=== PATIENT | male | born 1945 ===

== ENCOUNTER 2024-02-04 09:13 | Day surgery (SDC) | payer MEDICARE, OTHER ==
[~2024-02-04] VITALS: Ht 177.8 cm; Wt 113.9 kg
[~2024-02-04 09:13] MED LIST: LR 1,000 ML IV SCH
[2024-02-04] MEDS ORDERED: BENADRYL25 M2 PO (11:42)
[2024-02-04] MEDS ORDERED: GLUCOSAMINE SU500 M2 PO (11:43)
[2024-02-04 12:28] VITALS: BP 167/86; PULSE 74; TEMP 97.9
[2024-02-04] MEDS ORDERED: fentaNYL 50 MCG/ML 2 ML VIAL ONE (13:54)
[2024-02-04] MEDS ORDERED: Lidocaine PF 2% (20 MG/ML) 5 ML VIAL ONE (13:55)
[2024-02-04] MEDS ORDERED: HYDROmorphone 1 MG/1 ML SYRINGE [PACU/SDC ONLY] IV PRN (14:00)
[2024-02-04] MEDS ORDERED: hydrALAZINE 20 MG/ML 1 ML VIAL IV PRN (14:00)
[2024-02-04] MEDS ORDERED: Ondansetron 4 MG/2 ML VIAL IV PRN ×2 (14:00→15:30)
[2024-02-04] MEDS ORDERED: fentaNYL 50 MCG/ML 1 ML SYRINGE/VIAL [PACU/SDC ONLY] IV PRN (14:00)
[2024-02-04] MEDS ORDERED: NS 10 ML IV ONE (14:15)
[2024-02-04] MEDS ORDERED: Lidocaine 2% (20 MG/ML) 20 ML UROJET UR ONE (14:51)
[2024-02-04] MEDS ORDERED: Naloxone 0.4 MG/ML VIAL IV PRN (15:30)
[2024-02-04] MEDS ORDERED: Acetaminophen 325 MG TAB PO PRN (15:30)
[2024-02-04] MEDS ORDERED: Hyoscyamine 0.125 MG Sublingual TAB SL PRN (15:30)
[2024-02-04 15:35] VITALS: BP 101/73; PULSE 73; TEMP 97.3
--- NOTE | 2024-02-04 15:35 | NUR ---
PATIENT RETURNS TO ROOM 7 PER CART FROM PACU ACCOMPANIED BY DAWIT ANTHONY AND IS AWAKE AND ALERT. DENIES PAIN OR NAUSEA. IVF INFUSING. WATCHES TV. CALL LIGHT IN REACH.
[2024-02-04 15:50] VITALS: BP 135/78; PULSE 81
--- NOTE | 2024-02-04 15:50 | NUR ---
TOLERATES PEPSI AND ALSO EATS PUDDING. DENIES ANY PAIN OR NAUSEA.
[2024-02-04 16:10] VITALS: BP 146/85; PULSE 73
--- NOTE | 2024-02-04 16:10 | NUR ---
ABLE TO VOID PINK-TINGED URINE. DENIES ANY PAIN. IV DISCONTINUED AND SITE IS FREE OF REDNESS OR SWELLING. PATIENT DRESSES SELF.
--- NOTE | 2024-02-04 16:21 | NUR ---
PATIENT DISCHARGED TO HOME DRIVEN BY SPOUSE AND TAKEN TO VEHICLE PER WHEELCHAIR AND ASSISTED INTO CAR WITH INSTRUCTIONS IN HAND.
[2024-02-04 16:23] VITALS: BP 109/71; PULSE 77; TEMP 97.3
== END 2024-02-04 16:00 | disposition home or self-care (01) ==
LOC: SDCO 09:13
DX: N13.1 Hydronephrosis with ureteral stricture, not elsewhere classified (principal); Z85.048 Personal history of other malignant neoplasm of rectum, rectosigmoid junction, and anus
CPT/HCPCS: C1769; C2617; J0690; J2704; J3010; J7120